=== PATIENT | female | born 1945 | race Hispanic/Latino ===

== ENCOUNTER 2018-01-26 18:31 | Emergency (ER) | payer MEDICARE ==
[2018-01-26 18:34] VITALS: PULSE 71; RESP 18; TEMP 97.8; O2SAT 99
[2018-01-26 20:08] LABS: BASO # 0.1 K/uL (0.0-0.2); BASO % 0.5 % (0.0-2.0); EOS % 0.2 % (0.0-4.0); HEMOGLOBIN 14.8 g/dL (12.0-16.0); LYMPH # 0.9 K/uL (1.0-4.3); MEAN CELL VOLUME 83.6 fl (81.0-99.0); MEAN CORPUSCULAR HEMOGLOBIN 27.7 pg (27.0-31.0); MEAN CORPUSCULAR HGB CONC 33.1 g/dL (33.0-37.0); MEAN PLATELET VOLUME 8.4 fl (7.2-11.7); MONO # 0.4 K/uL (0.0-0.8); MONO % 3.1 % (0.0-10.0); NEUT # 10.1 K/uL (1.8-7.0); NEUT % 88.2 % (50.0-75.0); NRBC % 0.4 % (0.0-0.0); PLATELET COUNT 218 K/uL (130-400); RBC 5.35 Mil/uL (3.80-5.20); RED CELL DISTRIBUTION WIDTH 14.3 % (11.5-14.5); WHITE BLOOD COUNT 11.5 K/uL (4.8-10.8)
[2018-01-26 20:09] LABS: CALCIUM 10.9 mg/dL (8.4-10.2); GFR AFRICAN-AMERICAN > 60; GFR NON-AFRICAN AMERICAN > 60
--- NOTE | 2018-01-26 20:23 | ED PDOC ---
HPI: General Adult Time Seen by Provider: 01/26/18 18:51 Chief Complaint (Nursing): Abdominal Pain Chief Complaint (Provider): Constipation History Per: Patient History/Exam Limitations: no limitations Onset/Duration Of Symptoms: Days (x1) Have you had recent travel within the past 21 days to any of the following countries: [place], [place], [place] or [place]?: No Current Symptoms Are (Timing): Still Present Additional Complaint(s): 72 year old female presents to ED with complaints of constipation x1 day and has a past medical history of hypercholesterolemia and hypothyroidism. Notes drinking a bottle of magnesium citrate to resolve constipation with no relief. ( +) nausea, (-) abdominal pain or vomiting. Notes that last bowel movement was yesterday. PCP: Bridger Alcala Past Medical History Reviewed: Historical Data, Nursing Documentation, Vital Signs Vital Signs: Last Vital Signs Temp 97.8 F 01/26/18 18:32 Pulse 71 01/26/18 18:32 Resp 18 01/26/18 18:32 BP 159/90 H 01/27/18 03:15 Pulse Ox 99 01/27/18 02:59 - Medical History PMH: Hypercholesterolemia, Hypothyroidism Denies: No Chronic Diseases, Chronic Kidney Disease - Family History Family History: States: Unknown Family Hx - Social History Current smoker - smoking cessation education provided: No Ex-Smoker (has not smoked in the last 12 months): Yes Alcohol: None Drugs: Denies - Immunization History Hx Tetanus Toxoid Vaccination: No Hx Influenza Vaccination: No Hx Pneumococcal Vaccination: No - Home Medications Home Medications: Ambulatory Orders Medication Instructions Recorded Polyethylene Glycol 3350 [Miralax] 17 g PO QAM PRN #7 pkg 01/27/18 - Allergies Allergies/Adverse Reactions: Allergies Allergy/AdvReac Type Severity Reaction Status Date / Time No Known Allergies Allergy Verified 01/26/18 18:32 Review of Systems ROS Statement: Except As Marked, All Systems Reviewed And Found Negative Gastrointestinal: Positive for: Nausea, Constipation. Negative for: Vomiting, Abdominal Pain, Diarrhea Physical Exam - Reviewed Nursing Documentation Reviewed: Yes Vital Signs Reviewed: Yes - Physical Exam Appears: Positive for: Non-toxic, No Acute Distress Skin: Positive for: Normal Color, Warm, Dry ENT: Positive for: Normal ENT Inspection Cardiovascular/Chest: Positive for: Regular Rate, Rhythm. Negative for: Bradycardia Respiratory: Positive for: Normal Breath Sounds. Negative for: Respiratory Distress Gastrointestinal/Abdominal: Positive for: Soft. Negative for: Tenderness Back: Positive for: Normal Inspection Extremity: Positive for: Normal ROM. Negative for: Deformity Neurologic/Psych: Positive for: Alert, Oriented. Negative for: Motor/Sensory Deficits - Laboratory Results Result Diagrams: 01/26/18 19:33 01/26/18 19:33 - ECG O2 Sat by Pulse Oximetry: 99 (RA) Pulse Ox Interpretation: Normal - Other Rad AXR X-Ray: Interpreted by Me (No air-fluid levels, no free air.) Medical Decision Making Medical Decision Makin Initial impression: constipation Initial plan: * EKG * Labs * XR OBSTRUCTIVE SERIES * Reglan 10mg IVP * Zofran Inj 4mg IV * UA * Re-eval Pt administered Fleet enema with resultant BM but now with nausea and vomiting. Antiemetic and CT ordered. 0000 Patient signed over to Dr. Hsieh pending CT and reevaluation. Scribe Attestation: Documented by Sobia Adame and Dajuan Shipley, acting as scribes for Laly Santiago MD. Scribe Attestation: All medical record entries made by the Scribe were at my direction and personally dictated by me. I have reviewed the chart and agree that the record accurately reflects my personal performance of the history, physical exam, medical decision making, and the department course for this patient. I have also personally directed, reviewed, and agree with the discharge instructions and disposition. Disposition - Clinical Impression Clinical Impression: Abdominal pain, Constipation - Patient ED Disposition Is Patient to be Admitted: Transfer of Care - Disposition Disposition: Transfer of Care Disposition Time: 00:00 Condition: IMPROVED Prescriptions: Polyethylene Glycol 3350 [Miralax] 17 g PO QAM PRN #7 pkg PRN Reason: Constipation Instructions: Constipation in Adults Forms: [employer] (Persian) Patient Signed Over To: Leopoldo Hsieh Handoff Comments: pending CT and reeval
[2018-01-26 20:32] LABS: ALBUMIN 4.4 g/dL (3.5-5.0); ALT/SGPT 20 U/L (9-52); AST/SGOT 38 U/L (14-36); BLOOD UREA NITROGEN 17 mg/dl (7-17)
[2018-01-26 20:57] LABS: BANDS 2 % (0-2); LYMPHOCYTE 8 % (20-50); MONOCYTE 5 % (0-10); NEUTROPHIL 85 % (42-75); TOTAL CELLS COUNTED 100
[2018-01-26 20:58] LABS: PLATELET ESTIMATE NORMAL (NORMAL)
[2018-01-26] MEDS ORDERED: Sodium Chloride 0.9% 1,000 ML IV STA (23:05)
[2018-01-26] MEDS ORDERED: Iohexol 300 100 ML IJ ONE (23:07)
[2018-01-26] MEDS ORDERED: Sodium Chloride 0.9% 100 ML ONE (23:07)
--- NOTE | 2018-01-27 00:43 | ED PDOC ---
- Laboratory Results Result Diagrams: 01/26/18 19:33 01/26/18 19:33 - ECG O2 Sat by Pulse Oximetry: 99 (RA) Pulse Ox Interpretation: Normal Medical Decision Making Medical Decision Making: Time: 00:00 Patient signed over to me by Dr. Santiago pending CT and reevaluation. Time: 02:14 CT ABD AND PELVIS FINDINGS: Limitations: Motion artifact - mild. Lower thorax: Minimal atelectasis. Mild bronchiectasis lower lobes. Probable small hiatal hernia. ABDOMEN: Liver: Several small low-attenuation lesions with benign imaging features. Gallbladder and bile ducts: Gallstones. No significant ductal dilation. Pancreas: No ductal dilation. No mass. Spleen: No splenomegaly. Adrenals: 2.7 x 1.8 x 2.2 cm lesion within LEFT adrenal gland, indeterminate by CT criteria. 2.5 x 1.5 x 2.4 cm lesion within RIGHT adrenal gland, indeterminate by CT criteria. Kidneys and ureters: Few probable renal cysts. Few too small to characterize lesions within kidneys. Small right renal angiomyolipoma. No hydronephrosis. Stomach and bowel: Fluid/loose stool within large bowel. Few scattered diverticula within colon. No associated inflammatory stranding. No definite mural thickening. No obstruction. Appendix: Normal caliber. No inflammation. PELVIS: Bladder: Unremarkable. Reproductive: Few coarse calcifications within uterus. 1.6 x 2.3 x 1.8 cm hypodense lesion within LEFT ovary. 1.6 x 1.4 x 1.3 cm enhancing exophytic uterine mass vs left adnexal lesion. ABDOMEN and PELVIS: Intraperitoneal space: No significant fluid collection. No free air. Bones/joints: Mild degenerative changes of spine. No acute fracture. Soft tissues: Tiny umbilical hernia containing fat. Vasculature: Moderate atherosclerotic disease. No aneurysm. Lymph nodes: No pathologically enlarged lymph nodes. IMPRESSION: 1. Fluid/loose stool within bowel may suggest diarrhea illness. 2. Left adnexal lesion(s), indeterminate. Recommend ultrasound. 3. Adrenal lesions, indeterminate. Recommend nonemergent MRI. 4. Probable fibroid uterus. 5. Liver lesions. No follow-up is necessary. 6. Incidental/non-acute findings are described above. Time: 02:40 Upon reevaluation, patient reports marked improvement of symptoms and requests to be discharged home. Scribe Attestation: Documented by Dajuan Shipley, acting as a scribe for Leopoldo Hsieh MD. Provider Scribe Attestation: All medical record entries made by the Scribe were at my direction and personally dictated by me. I have reviewed the chart and agree that the record accurately reflects my personal performance of the history, physical exam, medical decision making, and the department course for this patient. I have also personally directed, reviewed, and agree with the discharge instructions and disposition. Disposition Counseled Patient/Family Regarding: Studies Performed, Diagnosis, Need For Followup, Rx Given - Clinical Impression Clinical Impression: Abdominal pain, Constipation - POA Present On Arrival: None - Disposition Disposition: Routine/Home Disposition Time: 02:40 Condition: IMPROVED Prescriptions: Polyethylene Glycol 3350 [Miralax] 17 g PO QAM PRN #7 pkg PRN Reason: Constipation Instructions: Constipation in Adults Forms: [employer] (Armenian)
--- NOTE | 2018-01-27 02:15 | CT ---
EXAM: CT Abdomen and Pelvis With Intravenous Contrast CLINICAL HISTORY: 72 years old, female; Pain; Abdominal pain; Acute; Additional info: Abd pain, constipation TECHNIQUE: Axial computed tomography images of the abdomen and pelvis with intravenous contrast. All CT scans at this facility use one or more dose reduction techniques, viz.: automated exposure control; ma/kV adjustment per patient size (including targeted exams where dose is matched to indication; i.e. head); or iterative reconstruction technique. Coronal and sagittal reformatted images were created and reviewed. CONTRAST: 95 mL of omnipaque 300 administered intravenously. COMPARISON: No relevant prior studies available. FINDINGS: Limitations: Motion artifact - mild. Lower thorax: Minimal atelectasis. Mild bronchiectasis lower lobes. Probable small hiatal hernia. ABDOMEN: Liver: Several small low-attenuation lesions with benign imaging features. Gallbladder and bile ducts: Gallstones. No significant ductal dilation. Pancreas: No ductal dilation. No mass. Spleen: No splenomegaly. Adrenals: 2.7 x 1.8 x 2.2 cm lesion within LEFT adrenal gland, indeterminate by CT criteria. 2.5 x 1.5 x 2.4 cm lesion within RIGHT adrenal gland, indeterminate by CT criteria. Kidneys and ureters: Few probable renal cysts. Few too small to characterize lesions within kidneys. Small right renal angiomyolipoma. No hydronephrosis. Stomach and bowel: Fluid/loose stool within large bowel. Few scattered diverticula within colon. No associated inflammatory stranding. No definite mural thickening. No obstruction. Appendix: Normal caliber. No inflammation. PELVIS: Bladder: Unremarkable. Reproductive: Few coarse calcifications within uterus. 1.6 x 2.3 x 1.8 cm hypodense lesion within LEFT ovary. 1.6 x 1.4 x 1.3 cm enhancing exophytic uterine mass vs left adnexal lesion. ABDOMEN and PELVIS: Intraperitoneal space: No significant fluid collection. No free air. Bones/joints: Mild degenerative changes of spine. No acute fracture. Soft tissues: Tiny umbilical hernia containing fat. Vasculature: Moderate atherosclerotic disease. No aneurysm. Lymph nodes: No pathologically enlarged lymph nodes. IMPRESSION: 1. Fluid/loose stool within bowel may suggest diarrhea illness. 2. Left adnexal lesion(s), indeterminate. Recommend ultrasound. 3. Adrenal lesions, indeterminate. Recommend nonemergent MRI. 4. Probable fibroid uterus. 5. Liver lesions. No follow-up is necessary. 6. Incidental/non-acute findings are described above.
[2018-01-27 03:15] VITALS: BP 159/90
--- NOTE | 2018-01-27 09:10 | CARD ---
APPROVED REPORT EKG Measurement Heart [id number] <Conclusion> Sinus rhythm with marked sinus arrhythmia Possible Inferior infarct, age undetermined Abnormal ECG
--- NOTE | 2018-01-27 09:16 | RAD ---
PROCEDURE: Radiographs of the chest and abdomen (obstructive series) HISTORY: Constipation COMPARISON: No prior. TECHNIQUE: AP radiograph of the chest, with upright and supine radiographs of the abdomen. FINDINGS: CHEST: Lungs: Minor interstitial change. No focal infiltrate. Cardiovascular: Normal size heart. No pulmonary vascular congestion. Pleura: No pleural fluid. No pneumothorax. Other findings: Minor atherosclerotic change of the aorta. ABDOMEN AND PELVIS: Bowel: Evaluation of the bowel reveals a few small fluid levels without significant bowel dilatation. Finding may suggest enteritis. No bowel wall thickening. Small calcification in the left side of the pelvis probably reflects calcified fibroid. Free air: None. Bones: Unremarkable. Other findings: None. IMPRESSION: No evidence of bowel obstruction.
== END 2018-01-27 03:16 | disposition home or self-care (01) ==
LOC: H.ER 18:31
DX: K59.00 Constipation, unspecified (principal); R10.9 Unspecified abdominal pain; Z87.891 Personal history of nicotine dependence; E78.00 Pure hypercholesterolemia, unspecified; E03.9 Hypothyroidism, unspecified
CPT/HCPCS: 74022; 74177; 80053; 85025; 93005; 96374; 96375; 96376; 99285; J2270; J2405; J2765; J7040; Q9967